=== PATIENT | female | born 1995 | race Caucasian/White ===

== ENCOUNTER 2020-05-19 18:00 | Outpatient (CLI) | payer OTHER ==
[2020-05-19 18:29] LABS: EOSINOPHILS % (AUTO) 0.2 %; HGB - HEMOGLOBIN 12.1 g/dL (12.0-16.0); LYMPHOCYTES # (AUTO) 1.9 10^3/uL (1.5-3.5); LYMPHOCYTES % (AUTO) 35.8 %; MEAN CORPUSCULAR HEMOGLOBIN 29.5 pg (27.0-31.0); MEAN CORPUSCULAR HGB CONC 33.1 g/dL (32.0-36.0); MEAN CORPUSCULAR VOLUME 89.3 fL (81.0-99.0); MEAN PLATELET VOLUME 8.9 fL (7.9-10.8); MONOCYTES # (AUTO) 0.4 10^3/uL (0.0-1.0); MONOCYTES % (AUTO) 7.3 %; NEUTROPHILS % (AUTO) 56.5 %; PLT - PLATELET COUNT 298 10^3/uL (130-450); RED CELL DISTRIBUTION WIDTH 12.1 % (12.0-15.0); WHITE BLOOD COUNT 5.4 x10^3/uL (4.8-10.8)
[2020-05-19 18:42] LABS: ALBUMIN 4.7 g/dL (3.2-5.5); ALBUMIN/GLOBULIN RATIO 1.7 (1.0-2.2); BILIRUBIN,TOTAL 0.6 mg/dL (0.2-1.0); CALCIUM 9.7 mg/dL (8.5-10.3); CREATININE 0.7 mg/dL (0.4-1.0); TOTAL PROTEIN 7.5 g/dL (6.7-8.2)
[2020-05-19 19:13] LABS: HCG,QUALITATIVE BLOOD NEGATIVE
[2020-05-19 19:40] LABS: FOLLICLE STIMULATING HORMONE 8.38 mIU/mL; LUTEINIZING HORMONE 13.03 mIU/mL
[2020-05-21 07:12] LABS: PROGESTERONE 4.4 ng/mL
== END 2020-05-19 18:01 | disposition home or self-care (01) ==
LOC: LAB 18:00
PROVIDERS: ATTEND Physician Assistant
DX: R63.4 Abnormal weight loss (principal); L60.3 Nail dystrophy; R23.2 Flushing; R51.9 Headache, unspecified; R53.83 Other fatigue; F10.11 Alcohol abuse, in remission
CPT/HCPCS: 36415; 80050; 82670; 83001; 83002; 84144; 84703

== ENCOUNTER 2020-09-26 10:57 | Outpatient (CLI) | payer OTHER | END 2020-09-26 10:58 | disposition home or self-care (01) | LOC: LAB 10:57 | PROVIDERS: ATTEND Physician Assistant | DX: R63.4 Abnormal weight loss (principal); R51.9 Headache, unspecified; R53.83 Other fatigue; L60.3 Nail dystrophy; R23.3 Spontaneous ecchymoses; F41.8 Other specified anxiety disorders | CPT/HCPCS: 36415; 82306; 83516; 85651; 86140 ==